=== PATIENT | male | born 2000 | race Caucasian/White ===

== ENCOUNTER 2020-09-11 23:00 | Emergency (ER) | payer BC ==
[2020-09-12] MEDS ORDERED: PEPCID20 MG PO (02:47)
[2020-09-12] MEDS ORDERED: BENADRYL 50MG C50 MG PO (02:47)
[2020-09-12] MEDS ORDERED: PREDNISONE 50 M50 MG PO (02:47)
== END 2020-09-12 03:05 | disposition home or self-care (01) ==
LOC: ER1 23:00
DX: L50.0 Allergic urticaria (principal)
CPT/HCPCS: 96374; 96375; 99282; J1200; J2930

== ENCOUNTER → 2021-09-14 | Outpatient (CLI) | payer BC ==
[~2021-09-14] MED LIST: BENADRYL 50MG C50 MG PO; PEPCID20 MG PO; PREDNISONE 50 M50 MG PO
[2021-09-14 16:08] LABS: HEMOGLOBIN 16.5 gm/dl (14.0-17.5); RED BLOOD COUNT 5.25 M/UL (4.20-5.50); WHITE BLOOD COUNT 7.6 K/UL (4.5-11.0)
[2021-09-14 16:49] LABS: BUN/CREATININE RATIO 18 (0-10)
== END ==
LOC: RT 14:43
PROVIDERS: Nurse Practitioner
DX: R00.2 Palpitations (principal); R07.89 Other chest pain; K21.9 Gastro-esophageal reflux disease without esophagitis; F41.9 Anxiety disorder, unspecified
CPT/HCPCS: 36415; 71046; 80053; 83735; 84443; 85025; 93005

== ENCOUNTER → 2021-09-27 | Outpatient (CLI) | payer BC | LOC: HEART 5 08:00 | DX: R00.2 Palpitations (principal); R07.89 Other chest pain ==